=== PATIENT | male | born 1960 | race Caucasian/White ===

== ENCOUNTER 2017-12-09 05:48 | Emergency (ER) | payer MEDICARE ==
--- NOTE | 2017-12-09 07:37 | ER Document Report ---
HPI - HPI Pain Level: 4 Context: Patient is a 57-year-old male who presents emergency department the chief complaint of feeling unwell. Patient states that 2 weeks ago he had a viral syndrome with intermittent fevers with a T-max of 102. Patient states that it resolved after hydration and Motrin. Patient states then on Friday he had return of similar symptoms. He admits to intermittent body aches and low-grade fevers. Otherwise he denies any headaches, sinus congestion, ear pain, sore throat, nausea, vomiting, abdominal pain. He denies any pyuria, hematuria. Patient does admit to right flank pain which he states is new since yesterday. He denies any history of kidney stones. Past medical history significant for history of IV drug use with hepatitis B, previous methadone treatment. Patient states that he no longer uses. - CONSTITUTIONAL Constitutional: DENIES: Fever, Chills - EENT EENT: DENIES: Sore Throat, Ear Pain, Eye problems - NEURO Neurology: DENIES: Headache, Weakness, Vision blurred, Dizzinesss / Vertigo - CARDIOVASCULAR Cardiovascular: DENIES: Chest pain - RESPIRATORY Respiratory: DENIES: Trouble Breathing, Coughing - GASTROINTESTINAL Gastrointestinal: DENIES: Abdominal Pain, Black / Bloody Stools - URINARY Urinary: DENIES: Dysuria, Urgency, Frequency - REPRODUCTIVE Reproductive: DENIES: :, Postmenopausal, Abnormal bleeding / discharge - MUSCULOSKELETAL Musculoskeletal: DENIES: Extremity pain Past Medical History - Social History Smoking Status: Current Every Day Smoker Chew tobacco use (# tins/day): No Frequency of alcohol use: None Drug Abuse: None Family History: Reviewed & Not Pertinent Patient has suicidal ideation: No Patient has homicidal ideation: No Renal/ Medical History: Denies: Hx Peritoneal Dialysis Vertical Provider Document - CONSTITUTIONAL Agree With Documented VS: Yes Notes: PHYSICAL EXAM GENERAL: Alert, interacts well. HEAD: Normocephalic, atraumatic. EYES: Pupils equal, round, and reactive to light. Extraocular movements intact. ENT: Oral mucosa moist, tongue midline. NECK: Full range of motion. Supple. Trachea midline. LUNGS: Clear to auscultation bilaterally, no wheezes, rales, or rhonchi. No respiratory distress. HEART: Regular rate and rhythm. No murmurs, gallops, or rubs. ABDOMEN: Soft, nondistended, nontender. No guarding, rebound, or rigidity.. Bowel sounds present in all 4 quadrants. Back: Negative for CVA tenderness bilaterally patient with palpable right paralumbar/flank pain. Patient states that the pain is not 100% reproducible palpation. EXTREMITIES: Moves all 4 extremities spontaneously. No edema, radial pulses 2/4 bilaterally. No cyanosis. NEUROLOGICAL: Alert and oriented x4. Normal speech. PSYCH: Normal affect, normal mood. SKIN: Warm, dry, normal turgor. No rashes or lesions noted. Course - Re-evaluation Re-evalutation: 12/09/17 08:48 Patient is a 57-year-old male who presents emergency department the chief complaint of fevers and low back pain. Patient's physical exam benign. Patient is afebrile in the emergency department with stable vital signs. Patient's presentation is consistent with a viral syndrome. Discussed with him to conservative management. Otherwise I do not suspect any underlying CVA, ACS , PE, acute intra-abdominal infection, mesenteric ischemia, aortic dissection. - Vital Signs Vital signs: Temp Pulse Resp BP Pulse Ox 98.3 F 96 16 152/74 H 97 12/09/17 05:59 12/09/17 05:59 12/09/17 05:59 12/09/17 05:59 12/09/17 05:59 - Laboratory Result Diagrams: 12/09/17 08:05 12/09/17 08:05 Discharge - Discharge Clinical Impression: Viral syndrome Condition: Good Disposition: HOME, SELF-CARE Instructions: Viral Syndrome ([facility]), Fever ([facility]), Acetaminophen Referrals: LES SEGOVIA MD [ACTIVE STAFF] - Follow up in 1 week
[2017-12-09 08:20] LABS: ABSOLUTE EOSINOPHILS # (AUTO) 0.2 10^3/uL (0.0-0.6); ABSOLUTE LYMPHOCYTES (AUTO) 1.9 10^3/uL (0.5-4.7); ABSOLUTE MONOCYTES (AUTO) 1.1 10^3/uL (0.1-1.4); BASOPHILS % (AUTO) 0.5 % (0-2); EOSINOPHILS % (AUTO) 2.1 % (0-6); HEMATOCRIT 42.9 % (37.9-51.0); HEMOGLOBIN 15.2 g/dL (13.5-17.0); LYMPHOCYTES % (AUTO) 23.2 % (13-45); MEAN CORPUSCULAR HEMOGLOBIN 31.7 pg (27.0-33.4); MEAN CORPUSCULAR HGB CONC 35.3 g/dL (32.0-36.0); MEAN CORPUSCULAR VOLUME 90 fl (80-97); MONOCYTES % (AUTO) 13.2 % (3-13); PLATELET COUNT 136 10^3/uL (150-450); RED BLOOD COUNT 4.79 10^6/uL (4.35-5.55); RED CELL DISTRIBUTION WIDTH 12.8 % (11.5-14.0); TOTAL CELLS COUNTED % (AUTO) 100 %; WHITE BLOOD COUNT 8.2 10^3/uL (4.0-10.5)
[2017-12-09 08:29] LABS: APPEARANCE,URINE CLEAR; BILIRUBIN,URINE NEGATIVE (NEGATIVE); COLOR,URINE YELLOW; GLUCOSE, URINE NEGATIVE (NEGATIVE); KETONES,URINE NEGATIVE (NEGATIVE); LEUKOCYTE ESTERASE,URINE NEGATIVE (NEGATIVE); NITRITE,URINE NEGATIVE (NEGATIVE); PROTEIN,URINE NEGATIVE (NEGATIVE); URINE SPECIFIC GRAVITY 1.021
[2017-12-09 08:38] LABS: ALANINE AMINOTRANSFERASE 52 U/L (21-72); ALBUMIN 3.9 g/dL (3.5-5.0); ALKALINE PHOSPHATASE 82 U/L (38-126); ANION GAP 14 (5-19); ASPARTATE AMINO TRANSFERASE 33 U/L (17-59); BILIRUBIN,DIRECT 0.4 mg/dL (0.0-0.4); BILIRUBIN,TOTAL 0.5 mg/dL (0.2-1.3); BLOOD UREA NITROGEN 9 mg/dL (7-20); CALCIUM 9.4 mg/dL (8.4-10.2); CARBON DIOXIDE 24 mmol/L (22-30); CHLORIDE 106 mmol/L (98-107); GLUCOSE 126 mg/dL (75-110); POTASSIUM 4.2 mmol/L (3.6-5.0); SODIUM 143.9 mmol/L (137-145); TOTAL PROTEIN 6.8 g/dL (6.3-8.2)
[2017-12-09 09:01] VITALS: BP 128/93
== END 2017-12-09 09:01 | disposition home or self-care (01) ==
LOC: ER 05:48
DX: B34.9 Viral infection, unspecified (principal); M79.1 Myalgia; R50.9 Fever, unspecified; R10.9 Unspecified abdominal pain; F17.200 Nicotine dependence, unspecified, uncomplicated
CPT/HCPCS: 36415; 80053; 81001; 85025; 99283

== ENCOUNTER 2018-08-25 09:40 | Emergency (ER) | payer MEDICARE ==
--- NOTE | 2018-08-25 10:24 | ER Document Report ---
ED Oral Problem - General Chief Complaint: Mouth Problem Stated Complaint: MOUTH PAIN Time Seen by Provider: 08/25/18 10:08 Primary Care Provider: [facility] [Provider Group] - Follow up as needed Mode of Arrival: Ambulatory Information source: Patient Notes: 57-year-old male presents emergency department with complaints of mouth pain. Patient states that he had 2 teeth removed a week ago. He has been having increasing pain since the extraction. Patient states that he has been taking Motrin for the pain but is worried about possible infection. Patient states that he is here only for antibiotics. Patient states that he has a history of drug abuse and does not want narcotic medication. Patient has a follow-up with his dentist in a week. Patient denies any fever, chills, difficulty swallowing, throat swelling, uvula edema. TRAVEL OUTSIDE OF THE [place] IN LAST 30 DAYS: No - HPI Onset: Last week Onset: Gradual Quality of pain: Achy Severity: Mild Context: Recent dental extractions Associated symptoms: None Worsened by: Nothing Relieved by: motrin Similar symptoms previously: Yes Recently seen / treated by doctor/dentist: Yes - Related Data Allergies/Adverse Reactions: No Known Allergies Allergy (Verified 08/25/18 09:42) Past Medical History - General Information source: Patient - Social History Smoking Status: Current Every Day Smoker Family History: Reviewed & Not Pertinent Renal/ Medical History: Denies: Hx Peritoneal Dialysis Review of Systems - Review of Systems Constitutional: No symptoms reported EENT: Mouth pain Cardiovascular: No symptoms reported Respiratory: No symptoms reported Gastrointestinal: No symptoms reported Genitourinary: No symptoms reported Musculoskeletal: No symptoms reported Skin: No symptoms reported Hematologic/Lymphatic: No symptoms reported Neurological/Psychological: No symptoms reported -: Yes All other systems reviewed and negative Physical Exam - Vital signs Vitals: Temp Pulse Resp BP Pulse Ox 98.5 F 67 16 163/87 H 96 08/25/18 10:32 08/25/18 10:32 08/25/18 10:32 08/25/18 10:32 08/25/18 10:32 - Notes Notes: PHYSICAL EXAMINATION: GENERAL: Well-appearing, well-nourished and in no acute distress. HEAD: Atraumatic, normocephalic. EYES: Pupils equal round and reactive to light, extraocular movements intact, sclera anicteric, conjunctiva are normal. ENT: Nares patent, oropharynx clear without exudates. Moist mucous membranes. Dry socket seen at tooth number 10 extraction site. No fluctuance. No facial swelling, erythema. No difficulty opening mouth or swallowing. NECK: Normal range of motion, supple without lymphadenopathy Musculoskeletal: Normal range of motion, No cyanosis. NEUROLOGICAL: Cranial nerves grossly intact. Normal speech, normal gait. Normal sensory, motor exams PSYCH: Normal mood, normal affect. SKIN: Warm, Dry, normal turgor, no rashes or lesions noted. Course - Re-evaluation Re-evalutation: 08/25/18 10:42 Exam is remarkable for dry socket. Discussed over the counter treatments. Instructed the patient to follow up with the dentist this week. I will start the patient on penicillin. Patient instructed to return to the emergency department for any worsening symptoms or fever. 08/25/18 18:47 - Vital Signs Vital signs: Temp Pulse Resp BP Pulse Ox 98.5 F 67 16 163/87 H 96 08/25/18 10:32 08/25/18 10:32 08/25/18 10:32 08/25/18 10:32 08/25/18 10:32 Discharge - Discharge Clinical Impression: Dry tooth socket Condition: Stable Disposition: HOME, SELF-CARE Instructions: Dental Infection or Abscess ([facility]) Prescriptions: Penicillin V Potassium [Penicillin Vk 500 mg Tablet] 500 mg PO QID 7 Days #28 tablet Referrals: [facility] [Provider Group] - Follow up as needed
[2018-08-25 10:33] VITALS: BP 163/87
== END 2018-08-25 10:54 | disposition home or self-care (01) ==
LOC: ER 09:40
DX: M27.3 Alveolitis of jaws (principal); F17.200 Nicotine dependence, unspecified, uncomplicated
CPT/HCPCS: 99282

== ENCOUNTER → 2020-03-22 | Outpatient (CLI) | payer MEDICARE ==
--- NOTE | 2020-03-22 18:37 | XCELERA REPORT ---
[address] [address] Transthoracic Echocardiogram Report Name: MAKI CASTRO Age: 59 yrs Gender: Male : 1960 Patient Status: Outpatient Patient Location: Study Date: 03/22/2020 07:54 AM History: Chest pain Height: 73 in Weight: 225 lb BSA: 2.3 m2 Procedure: A complete two-dimensional transthoracic echocardiogram was performed (2D, M-mode, spectral and color flow Doppler). The study was technically adequate with some images being suboptimal in quality. Reason For Study: CHEST PAIN Previous Evaluation: No previous studies were available. History: Chest pain. Ordering Physician: ZAK ABDUL Performed By: Mahsa Wheeler Interpretation Summary Left ventricular systolic function is normal. The Ejection Fraction estimate is 55-60% There is a trace amount of mitral regurgitation There is no aortic valve stenosis There is a trace amount of tricuspid regurgitation Doppler findings do not suggest pulmonary hypertension. Minimal pericardial effusion. MMode/2D Measurements & Calculations RVDd: 2.2 cm LVIDd: 4.7 cm FS: 34.2 % Ao root diam: 2.9 cm IVSd: 1.2 cm LVIDs: 3.1 cm EDV(Teich): 103.3 ml Ao root area: 6.7 cm2 LVPWd: 0.88 cm ESV(Teich): 38.1 ml EF(Teich): 63.1 % Doppler Measurements & Calculations MV E max brianne: MV dec slope: Ao V2 max: LV V1 max P.9 cm/sec 301.5 cm/sec2 187.7 cm/sec 11.8 mmHg MV A max brianne: MV dec time: 0.22 secAo max PG: LV V1 max: 94.2 cm/sec 14.1 mmHg 171.5 cm/sec MV E/A: 0.70 PA V2 max: TR max brianne: 116.5 cm/sec 233.8 cm/sec PA max P.4 mmHg TR max P.9 mmHg Left Ventricle The left ventricle is normal in size. There is mild concentric left ventricular hypertrophy. Left ventricular systolic function is normal. The Ejection Fraction estimate is 55-60%. Doppler measurements suggest impaired left ventricular relaxation, which is associated with grade I/IV or mild diastolic dysfunction. Right Ventricle The right ventricle is normal in size and function. Atria The right atrium is normal. The left atrium is borderline dilated. Mitral Valve The mitral valve is grossly normal. There is no evidence of mitral valve prolapse. There is no mitral valve stenosis. There is a trace amount of mitral regurgitation. Aortic Valve The aortic valve is mildly calcified. The aortic valve is sclerotic and shows some degree of functional abnormality. The aortic valve opens well. There is no aortic valve stenosis. Tricuspid Valve The tricuspid valve is not well visualized, but is grossly normal. There is a trace amount of tricuspid regurgitation. Tricuspid regurgitation jet envelope not well defined to measure RV systolic pressure accurately. Doppler findings do not suggest pulmonary hypertension. Pulmonic Valve The pulmonic valve is normal in structure and function. There is a trace amount of pulmonic regurgitation. Great Vessels The aortic root is normal size. The inferior vena cava was not well visualized. Effusions Minimal pericardial effusion. : ZAK ABDUL Anil
== END ==
LOC: SP 08:05
PROVIDERS: ATTEND Internal Medicine
DX: R07.9 Chest pain, unspecified (principal)
CPT/HCPCS: 93306

== ENCOUNTER → 2020-03-27 | Outpatient (CLI) | payer MEDICARE ==
[~2020-03-27] MED LIST: REGADENOSON INJ 0.4 MG/5 ML DISP.SYRIN IV ONE
--- NOTE | 2020-03-27 13:08 | DRAGON STRESS TEST REPORT ---
Pharmacological nuclear stress test Date: 03/27/2020 Referring physician: Fred Bermudez MD Performing physician: Maykel Stewart MD Indication: Chest pain Clinical history 59 year-old with medical history significant for systemic hypertension and continued nicotine dependence presenting with chest pain. We decided to proceed with pharmacological nuclear stress test. Patient has chronic sciatica and is unable to exercise properly. Procedure The patient presented to the stress lab. Initially rest images were obtained according to standard protocol after the injection of 14.46 millicurie technetium 99m sestamibi. Subsequently the patient underwent pharmacological stress utilizing 0.4 mg of regadenoson intravenously. The patient's EKG and vital signs were monitored throughout the procedure. Subsequently patient was injected with 44.4 millicuries of technetium 99m sestamibi. After a period of rest, stress images were obtained according to standard protocol. EKG showed sinus rhythm at 60 beats per minute. The patient's stress EKG did not show any evidence for myocardial ischemia. There were no arrhythmias observed. Raw as well as processed rest and stress images were reviewed. There was mild gut uptake which did not interfere with the study. The rest and stress images show uniform uptake of radioactive isotope without any fixed or reversible defects to suggest myocardial ischemia or myocardial infarction. There is normal contractility post-rest. The calculated ejection fraction is 55 %. The TID ratio is 1.18. Conclusion The stress EKG is negative for myocardial ischemia There is no scintigraphic evidence of myocardial infarction or ischemia provoked by pharmacological stress. There is normal contractility post-stress. The gated left ventricular ejection fraction is 55 %. The patient will be given an appointment to discuss these results. [facility]
== END ==
LOC: RAD 08:05
PROVIDERS: ATTEND Internal Medicine
DX: R07.9 Chest pain, unspecified (principal)
CPT/HCPCS: 93017; 78452; A9500; J2785; Q9969